=== PATIENT | male | born 1935 | race Caucasian/White ===

== ENCOUNTER 2021-01-04 08:55 | Outpatient (CLI) | payer MEDICARE, SELFPAY ==
--- NOTE | 2021-01-04 09:14 | ECG_ITS ---
[facility] Test Date: 2021-01-04 Pat Name: León Ruby Department: Room: Gender: Male Leisure Studies Professor: : 1935 Requested By: Hudson Kimbrough Order Number: [id number] Kendall MD: KAVIN VALDEZ Interpretive Statements NAME OF STUDY: LEXISCAN SESTAMIBI STRESS TEST INDICATION: Chest Pain; Shortness of Breath, NOTE: Please note that this is the electrocardiogram portion of the Lexiscan/Sestamibi stress test. The perfusion scan will be documented separately. DATA: Baseline heart rate was 59 beats per minute. Baseline blood pressure was 154/80 millimeters of mercury. Target heart rate was 134. Maximum heart rate achieved was 110. which was 82% of the predicted target heart rate. Maximum blood pressure was 154/80 millimeters of mercury. The reason for ending the test was completion of the protocol. The patient did not experience any symptoms. ELECTROCARDIOGRAM: BASELINE: Sinus rhythm. Normal axis. Otherwise, no ST-T changes suggestive of ischemia noted. No arrhythmia noted. EXERCISE: After Lexiscan injection, no ST-T changes suggestive of ischemic noted. No arrhythmia noted. CONCLUSION: Please note due to baseline abnormality of the EKG specificity and sensitivity of the EKG portion of LexiScan MIBI stress test will be low 1. EKG not suggestive of ischemia 2. Lexiscan injection unremarkable. 3. Perfusion scan will be documented separately. Electronically Signed On 01-04-2021 21:02:51 CDT by KAVIN VALDEZ [id number]
--- NOTE | 2021-01-04 09:15 | NMCV_ITS ---
NM jayna perf SPECT r/s* [id number] León Ruby Age: 85 Gender: M : 1935 Exam Date: 01/04/2021 10:21 Ordering Phys: Hudson Kimbrough MD ([email or web address]) Technologist: SANDRA Ramirez Exam Location: [facility] Indications: SHORTNESS OF BREATH STRESS TEST Please see separate stress test report in Ephiphany for full findings IMAGE PROTOCOL Rest/Stress 1 Lexiscan Day Radiopharmaceutical Dose (mCi) Administration Site Administered by Rest: Tc-99m 10.7 IV SANDRA Ramirez Sestamibi Stress:Tc-99m 32.6 IV SANDRA Muniz Sestamibi Rest: 04-Jan-2021 60 Discovery 630 Stress: 04-Jan-2021 30 Discovery 630 0.4mg Lexiscan. Images obtained in supine and prone position. SPECT RESULTS Technical Quality: Excellent Raw Data Analysis: Normal Image Corrections: No attenuation or motion correction applied Summed Stress Score: 2 Summed Rest Score: 0 Summed Difference Score: 2 PERFUSION FINDINGS Small area of slightly decreased tracer uptake in the basal ,mid and apical inferior wall region, with no significant reversibility FUNCTIONAL RESULTS (calculated via Gated SPECT) Stress Image LV EF (%): 75 Stress EDV (mL):80 TID: 0.93 Stress ESV (mL):20 FUNCTIONAL FINDINGS: Normal wall motion analysis revealing no gross wall motion normalities. IMPRESSIONS 1. Myocardial perfusion imaging revealing small area of slightly decreased persistent tracer uptake in the inferior wall region, suggestive of myocardial scarring versus attrition artifact. 2. Normal LV ejection fraction of 35%. 3. LV wall motion analysis revealing no gross wall motion normalities. 4. Normal LV volume. No significant coronary ischemia, based on the above findings Dr Hudson Kimbrough MD FACC (Electronically Signed) Final Date: 07 January 2021 19:01 S
[2021-01-04 09:34] VITALS: BMI 25.8
[2021-01-04] MEDS: regadenoson 0.4 Mg/5 ml Syringe IVP (10:52)
[2021-01-04 11:10] VITALS: BP 130/73; PULSE 69
== END 2021-01-04 08:56 | disposition home or self-care (01) ==
LOC: CDL 08:57
PROVIDERS: PCP Family Medicine; Visit Provider Internal Medicine Cardiovascular Disease
DX: R06.02 Shortness of breath (principal); R07.9 Chest pain, unspecified
CPT/HCPCS: 78452; 93017; A9500; J2785

== ENCOUNTER 2021-02-16 14:24 | Outpatient (CLI) | payer MEDICARE, SELFPAY ==
--- NOTE | 2021-02-16 14:15 | USCV_ITS ---
Tung León Age: 85 Gender: M : 1935 Exam Date: 02/16/2021 14:43 Ordering Phys: Hudson Kimbrough MD ([email or web address]) Technologist: Evelia Carty Exam Location: [facility] [place] Indication: abnormal CV function study BP: 135 / 80 HR: 60 Rhythm: Sinus Technical Quality: Adequate MEASUREMENTS (Male / Female) Normal Values 2D ECHO LV Diastolic Diameter PLAX 4.2 cm 4.2 - 5.9 / 3.9 - 5.3 cm LV Systolic Diameter PLAX 1.9 cm IVS Diastolic Thickness 1.3 cm 0.6 - 1.0 / 0.6 - 0.9 cm IVS Systolic Thickness 2.0 cm LVPW Diastolic Thickness 1.1 cm 0.6 - 1.0 / 0.6 - 0.9 cm LVPW Systolic Thickness 2.1 cm LVOT Diameter 2.0 cm LV Ejection Fraction 2D Teich 85.8 % LV Ejection Fraction MOD 2C 78.2 % LV Ejection Fraction 2C AL 79.4 % LA Diameter 3.4 cm LA Width 3.4 cm LA Height 5.4 cm RA Width 3.8 cm RA Height 5.0 cm Aorta at Sinotubular Diameter 3.0 cm DOPPLER AV Peak Velocity 158.7 cm/s LVOT Peak Velocity 128.0 cm/s AV Area Cont Eq vti 2.8 cm squared AV Area Cont Eq pk 2.6 cm squared MV Peak Velocity 130.0 cm/s MV Area PHT 3.0 cm squared Mitral E to A Ratio 1.3 MV E' Velocity 62.5 cm/s Mitral E to MV E' Ratio 14.8 Mitral E to LV E' Lateral Ratio 16.2 Mitral E to LV E' Septal Ratio 13.6 TR Peak Velocity 281.3 cm/s TR Peak Gradient 31.6 mmHg Right Atrial Pressure 3.0 mmHg Pulmonary Artery Systolic Pressu 34.6 mmHg PV Peak Velocity 74.0 cm/s RV Acceleration Time 0.1 s RV Ejection Time 0.3 s RV AcT/ET 0.4 FINDINGS Left Ventricle Normal left ventricular size and systolic function, EF 74 %. Mild left ventricular hypertrophy. No regional wall motion abnormalities. Right Ventricle The right ventricle is normal in size and function. Right Atrium The right atrium is normal in size. Left Atrium The left atrium is normal in size. Mitral Valve Thickened mitral valve. Trace mitral valve regurgitation. Mild mitral annular calcification. Aortic Valve Thickened aortic valve. Aortic valve sclerosis. Tricuspid Valve Mild tricuspid valve regurgitation. Estimated pulmonary artery peak systolic pressure of 35 mmHg Pulmonic Valve Trace pulmonary valve regurgitation. Pericardium Normal pericardium without effusion. Aorta Normal ascending aorta dimension. CONCLUSIONS Normal left ventricular size and systolic function, EF 74 %. Mild left ventricular hypertrophy. No regional wall motion abnormalities. Thickened mitral valve. Trace mitral valve regurgitation. Mild mitral annular calcification. Features of aortic valve sclerosis. Mild tricuspid valve regurgitation. Estimated pulmonary artery peak systolic pressure of 35 mmHg. There is no pericardial effusion. There are no intracardiac masses. No previous study is available for comparison. Dr Hudson Kimbrough MD FACC (Electronically Signed) Final Date: 16 February 2021 19:15 S
== END 2021-02-16 14:25 | disposition home or self-care (01) ==
LOC: US 14:27
PROVIDERS: PCP Family Medicine; Visit Provider Internal Medicine Cardiovascular Disease
DX: R94.30 Abnormal result of cardiovascular function study, unspecified (principal); I08.1 Rheumatic disorders of both mitral and tricuspid valves
CPT/HCPCS: 93306

== ENCOUNTER 2021-05-17 10:10 | Outpatient (RCR) | payer MEDICARE, SELFPAY | END 2021-06-01 23:59 | disposition home or self-care (01) | LOC: SPT 10:10 | PROVIDERS: PCP Family Medicine; Referring Provider Psychiatry & Neurology Neurology; Visit Provider Psychiatry & Neurology Neurology | DX: R26.9 Unspecified abnormalities of gait and mobility (principal) | CPT/HCPCS: 97110; 97112; 97116; 97161; 97530 ==

== ENCOUNTER 2021-06-02 06:00 | Outpatient (RCR) | payer MEDICARE, SELFPAY | END 2021-07-02 23:59 | disposition home or self-care (01) | LOC: SPT 06:00 | PROVIDERS: PCP Family Medicine; Referring Provider Psychiatry & Neurology Neurology; Visit Provider Psychiatry & Neurology Neurology | DX: R26.9 Unspecified abnormalities of gait and mobility (principal) | CPT/HCPCS: 97110; 97112; 97116 ==

== ENCOUNTER 2021-07-03 06:00 | Outpatient (RCR) | payer MEDICARE, SELFPAY | END 2021-07-30 23:59 | disposition home or self-care (01) | LOC: SPT 06:00 | PROVIDERS: PCP Family Medicine; Referring Provider Psychiatry & Neurology Neurology; Visit Provider Psychiatry & Neurology Neurology | DX: R26.9 Unspecified abnormalities of gait and mobility (principal) | CPT/HCPCS: 97110; 97164 ==

== ENCOUNTER → 2021-12-17 14:18 | Outpatient (BNVA) | payer MEDICARE, SELFPAY | PROVIDERS: PCP Family Medicine; Visit Provider Nurse Practitioner | DX: I10 Essential (primary) hypertension (principal); F03.90 Unspecified dementia, unspecified severity, without behavioral disturbance, psychotic disturbance, mood disturbance, and anxiety | CPT/HCPCS: 80053; 81000; 82607; 84443; 85025 ==

== ENCOUNTER → 2022-04-15 12:13 | Outpatient (BNVA) | payer MEDICARE, SELFPAY | PROVIDERS: PCP Nurse Practitioner; Referring Provider Family Medicine; Visit Provider Specialist | DX: R56.9 Unspecified convulsions (principal); G47.419 Narcolepsy without cataplexy; G30.9 Alzheimer's disease, unspecified; F02.80 Dementia in other diseases classified elsewhere, unspecified severity, without behavioral disturbance, psychotic disturbance, mood disturbance, and anxiety; G93.40 Encephalopathy, unspecified; R25.1 Tremor, unspecified; G47.52 REM sleep behavior disorder; R26.89 Other abnormalities of gait and mobility | CPT/HCPCS: 99205 ==

== ENCOUNTER 2022-04-18 17:47 | Emergency (ER) | payer MEDICARE, SELFPAY ==
--- NOTE | 2022-04-18 17:52 | W.ED.AMS ---
HPI - Altered Mental Status General: Chief Complaint: Altered Mental Status Stated Complaint: ams Time Seen by Provider: 04/18/22 17:52 Limitations: altered mental status History of Present Illness: Mr. Ruby is an 86-year-old gentleman with history of Alzheimer's dementia as well as medical conditions presenting to the emergency department due to altered mental status. Patient is alone in the room and supplemental history is extremely limited. Apparently has been more confused for approximately 2 days. Review of Systems General: Reports: ROS unobtainable due to mental status PFSH ED PFSH: Medical History Adrenal nodule Anemia Aortic stenosis BPH (benign prostatic hyperplasia) Bradycardia Carotid artery stenosis Carotid atherosclerosis CHF (congestive heart failure) CKD (chronic kidney disease) CVA (cerebral vascular accident) Dementia Dizziness Hearing loss of both ears History of nonmelanoma skin cancer HTN (hypertension) Hyperlipidemia Immunization declined Decline flu, pneumonia and COVID immunization. 02/20/22 Lives in assisted living facility SHIVA (obstructive sleep apnea) Osteoarthritis Restless leg Seizures Shortness of breath TIA (transient ischemic attack) Surgical History History of carotid endarterectomy History of right-sided carotid endarterectomy History of total left hip replacement Hx of bilateral inguinal hernia repair Hx of cataract extraction Hx of shoulder surgery Family History Mother Diabetes Sister Diabetes Brother Diabetes CAD (coronary artery disease) Son Hypertension Social History Smoking and tobacco status: former smoker Second hand smoke exposure: No Smoking risk assessment/counseling performed?: No Alcohol intake: never Desire information about alcohol rehabilitation?: No Counseling given: No Desire information about substance/drug rehabilitation?: No Counseling given: No Adopted: No Caregiver/support person: Yes Lives independently: No Household members: other Housing: Assisted Living Facility Marital status: Number of children: 3 Current occupational status: retired Pets and animals: No History of recent travel: No Current gender identity: Male Physical Exam Const: COMMON NORMALS: alert GENERAL APPEARANCE: cooperative and well developed HENMT: COMMON NORMALS: normocephalic and atraumatic HEAD & SCALP: normocephalic and atraumatic THROAT: posterior oropharynx normal Eye: COMMON NORMALS: conjunctivae normal CONJUNCTIVA: Yes conjunctivae normal SCLERA: sclerae normal Neck/C-Spine: COMMON NORMALS: supple GENERAL: Yes trachea midline Resp: COMMON NORMALS: clear to auscultation bilaterally EFFORT & INSPECTION: Yes able to speak in complete sentences AUSCULTATION: clear to auscultation bilaterally Cardio: COMMON NORMALS: regular rate and regular rhythm RATE: regular rate RHYTHM: regular rhythm GI: COMMON NORMALS: Soft to palpation PALPATION: Yes Soft to palpation and No Tenderness to palpation present (GI) Extremity: GENERAL: Yes normal exam except as noted and No edema Neuro: COMMON NORMALS: moves all extremities SENSORIUM/ORIENTATION: Yes alert and Yes Orientation impaired Psych: MEMORY/COGNITION: Yes memory grossly impaired and Yes cognition grossly impaired Course Vital Signs: Vital signs: Vital Signs Temperature 99 F 04/18/22 17:53 Pulse Rate 84 04/18/22 23:47 Respiratory Rate 19 H 04/18/22 21:15 Blood Pressure 152/66 04/18/22 23:47 Pulse Oximetry 93 04/18/22 23:47 Oxygen Delivery Me thod 04/18/22 23:00 Oxygen Flow Rate 2 04/18/22 21:15 MDM - Altered Mental Status Medical Decision Making 86-year-old gentleman presenting with possible alteration in consciousness from senior care with limited history. Limited history provided by patient however neurologic exam is nonfocal. EKG shows sinus rhythm with nonspecific ST segment abnormalities, no STEMI. Labs with mild leukocytosis, macrocytic anemia. No significant metabolic derangement to explain symptoms. Delta troponin at 2 hours is negative. No evidence of UTI. Chest x-ray with mild pulmonary vascular congestion. CT head with chronic findings, no acute traumatic injury to cervical spine. The exact cause of patient's symptoms is unclear, leukocytosis may be secondary to viral syndrome. Given patient's baseline mental status I do not feel that patient requires further inpatient evaluation. The results of ED evaluation were discussed with the patient including prescriptions and/or symptomatic cares (if applicable) including appropriate and responsible use, followup plan, and return precautions. The patient verbalized understanding and felt safe for discharge. Medical Records I reviewed the patient's medical records. Lab Data I reviewed the patient's lab results. 04/18/22 18:15 04/18/22 18:15 Radiology Impressions Chest X-Ray 04/18/22 17:56 IMPRESSION: 1. Cardiomegaly and mild pulmonary vascular congestion. 2. Left lower lobe atelectasis versus minimal infiltrate. Head CT 04/18/22 17:56 IMPRESSION: 1. Negative for intracranial hemorrhage or mass effect. 2. Large amount of diffuse white matter disease likely reflecting chronic microvascular ischemic changes. 3. Left external capsule chronic lacunar infarct. Cervical Spine CT 04/18/22 17:59 IMPRESSION: 1. Negative for fracture or dislocation. 2. Mastoid air cell partial opacification may reflect an infectious or inflammatory process. 3. Carotid artery atherosclerotic calcifications. Laboratory Results WBC 12.0 10^3/uL (4.0-10.0) H 04/18/22 18:15 RBC 3.62 10^6/uL (4.1-5.3) L 04/18/22 18:15 Hgb 11.0 g/dL (11.7-16.6) L 04/18/22 18:15 Hct 35.1 % (42.0-52.0) L 04/18/22 18:15 MCV 97.0 fl (80-94) H 04/18/22 18:15 MCH 30.4 pg (28.0-34.0) 04/18/22 18:15 MCHC 31.3 g/dL (30.0-36.0) 04/18/22 18:15 RDW 13.2 % (12.1-15.1) 04/18/22 18:15 Plt Count 190 10^3/cmm (130-400) 04/18/22 18:15 MPV 10.4 fL (7.4-10.4) 04/18/22 18:15 Neut % (Auto) 81.0 % 04/18/22 18:15 Lymph % (Auto) 8.0 % 04/18/22 18:15 Walton % (Auto) 9.7 % 04/18/22 18:15 Eos % (Auto) 0.7 % 04/18/22 18:15 Baso % (Auto) 0.3 % 04/18/22 18:15 Neut # (Auto) 9.75 10^3/uL (1.8-7.7) H 04/18/22 18:15 Lymph # (Auto) 1.0 10^3/uL (0.8-4.8) 04/18/22 18:15 Walton # (Auto) 1.2 10^3/uL (0.2-0.9) H 04/18/22 18:15 Eos # (Auto) 0.1 10^3/uL (0.0-0.8) 04/18/22 18:15 Baso # (Auto) 0.0 10^3/uL (0.0-0.1) 04/18/22 18:15 Nucleated RBC % (auto) 0 % 04/18/22 18:15 Nucleated RBCs # 0.0 /100WBC 04/18/22 18:15 Sodium 141 mmol/L (136-145) 04/18/22 18:15 Potassium 3.8 mmol/L (3.5-5.1) 04/18/22 18:15 Chloride 99 mmol/L (98-107) 04/18/22 18:15 Carbon Dioxide 31 mmol/L (22-29) H 04/18/22 18:15 Anion Gap 14.8 (5-19) 04/18/22 18:15 BUN 24 mg/dL (8-23) H 04/18/22 18:15 Creatinine 1.2 mg/dL (0.7-1.2) 04/18/22 18:15 GFR Calculation Not Reportable 04/18/22 18:15 Glucose 117 mg/dL (65-115) H 04/18/22 18:15 POC Glucose 120 mg/dL (70-110) H 04/18/22 18:52 Calculated Osmolality 297 mOsm/kg (285-295) H 04/18/22 18:15 Calcium 9.0 mg/dL (8.5-10.5) 04/18/22 18:15 Total Bilirubin 0.7 mg/dL (0.15-1.2) 04/18/22 18:15 AST 17 U/L (0-40) 04/18/22 18:15 ALT 10 U/L (0-41) 04/18/22 18:15 Alkaline Phosphatase 76 U/L (40-130) 04/18/22 18:15 Troponin T Baseline 45 ng/L (0-15) H 04/18/22 18:15 Troponin T 120 Minute 44.24 ng/L (0-15) H 04/18/22 20:25 Delta Troponin T -0.76 ABS# (0-10) L 04/18/22 20:25 Total Protein 6.7 g/dL (6.6-8.7) 04/18/22 18:15 Albumin 3.7 g/dL (3.5-5.2) 04/18/22 18:15 Globulin 3.0 g/dL (1.3-4.6) 04/18/22 18:15 Procalcitonin 0.03 ng/mL (0-0.5) 04/18/22 18:15 TSH 0.90 uIU/mL (0.27-4.20) 04/18/22 18:15 Urine Color Yellow (Yellow) 04/18/22 21:04 Urine Appearance Clear (CLEAR) 04/18/22 21:04 Urine pH 5 (5-7) 04/18/22 21:04 Ur Specific [place] 1.020 (1.005-1.030) 04/18/22 21:04 Urine Protein Trace (Negative) 04/18/22 21:04 Urine Glucose (UA) Norm (Normal) 04/18/22 21:04 Urine Ketones 1+ (Negative) H 04/18/22 21:04 Urine Blood 2+ (Negative) H 04/18/22 21:04 Urine Nitrate Negative (Negative) 04/18/22 21:04 Urine Bilirubin Neg (Negative) 04/18/22 21:04 Urine Urobilinogen Norm mg/dL (Negative) 04/18/22 21:04 Ur Leukocyte Esterase Negative (Negative) 04/18/22 21:04 Urine RBC 0-4 /hpf (0-2) H 04/18/22 21:04 Urine WBC None /hpf (0-5) 04/18/22 21:04 Ur Squamous Epith Cells 0-4 /hpf (0-5) H 04/18/22 21:04 Amorphous Sediment 2+ /hpf 04/18/22 21:04 Urine Bacteria None /hpf (NONE) 04/18/22 21:04 Coarse Granular Casts 0-4 /lpf H 04/18/22 21:04 Salicylates < 0.3 mg/dL (3-10) L 04/18/22 18:15 Acetaminophen < 5.0 ug/mL (10-30) L 04/18/22 18:15 Ethyl Alcohol < 10 mg/dL (0-10) 04/18/22 18:15 Coronavirus 229E (PCR) Not detected (NOT DETECT) 04/18/22 18:46 SARS-CoV-2 (PCR) Not detected (NOT DETECT) 04/18/22 18:46 Discharge Plan Discharge Patient Disposition: [facility] Clinical Impression: Altered mental status, Viral syndrome Condition: Stable Discharge Orders: Discharge ED (Routine); Ordered 04/18/22 Ordered By: Naresh Lay Referrals: Katalina Melo FNP-C [Primary Care Provider] - Discharge Diet: Usual diet Discharge Activity: Increase activity as tolerated Patient Instructions: Viral Syndrome (ED), Altered Mental Status (ED) Activity Restrictions/Additional Instructions: Thank you for visiting the emergency department. You were seen and evaluated for altered mental status associated with fever. The exact cause of the symptoms is unclear though may be related to viral syndrome. I do not see any other obvious source of infection. You may treat symptoms with acetaminophen and ibuprofen as long as you have not been told to avoid these medications in the past. Please be reassessed with primary care within the next 3 to 5 days. Return to the emergency department for uncontrolled symptoms or anything else that you are concerned about a feel needs emergency department evaluation. Coding Level of Care Code ED Environmental Aid for [place]
[2022-04-18 17:53] VITALS: BP 176/86; PULSE 101; RESP 20; TEMP 37.2; O2SAT 97
--- NOTE | 2022-04-18 17:56 | XRR_ITS ---
PROCEDURE INFORMATION: Exam: XR Chest Exam date and time: 04/18/2022 7:01 PM Age: 86 years old Clinical indication: Other: AMS TECHNIQUE: Imaging protocol: Radiologic exam of the chest. Views: 1 view. COMPARISON: CR XR shoulder RT min 2V* [id number] 05/29/2018 10:26 AM FINDINGS: Lungs: Left lower lobe atelectasis versus minimal infiltrate. Pleural spaces: Unremarkable. No pleural effusion. No pneumothorax. Heart/Mediastinum: Cardiomegaly and mild pulmonary vascular congestion. Bones/joints: Unremarkable. XR/XR chest 1V portable [id number] IMPRESSION: 1. Cardiomegaly and mild pulmonary vascular congestion. 2. Left lower lobe atelectasis versus minimal infiltrate.
--- NOTE | 2022-04-18 17:56 | CTR_ITS ---
PROCEDURE INFORMATION: Exam: CT Head Without Contrast Exam date and time: 04/18/2022 6:57 PM Age: 86 years old Clinical indication: Altered mental status/memory loss; Additional info: AMS TECHNIQUE: Imaging protocol: Computed tomography of the head without contrast. Radiation optimization: All CT scans at this facility use at least one of these dose optimization techniques: automated exposure control; mA and/or kV adjustment per patient size (includes targeted exams where dose is matched to clinical indication); or iterative reconstruction. COMPARISON: No relevant prior studies available. RADIATION DOSE METRICS: Total DLP (mGy-cm): 1403.68 FINDINGS: Brain: Large amount of diffuse white matter disease likely reflecting chronic microvascular ischemic changes. Left external capsule chronic lacunar infarct. Cerebral ventricles: No ventriculomegaly. Paranasal sinuses: Visualized sinuses are unremarkable. No fluid levels. Mastoid air cells: Visualized mastoid air cells are well aerated. Bones/joints: Unremarkable. No acute fracture. Soft tissues: Unremarkable. CT/CT head wo con* [id number] IMPRESSION: 1. Negative for intracranial hemorrhage or mass effect. 2. Large amount of diffuse white matter disease likely reflecting chronic microvascular ischemic changes. 3. Left external capsule chronic lacunar infarct.
--- NOTE | 2022-04-18 17:57 | ECG_ITS ---
[facility] Test Date: 2022-04-18 Pat Name: León Ruby Department: Room: Gender: Male Air Sampling And Monitoring: : 1935 Requested By: Naresh Lay Order Number: [id number] Kendall MD: Grupo Henriquez M.D. Measurements Intervals [place] Rate: 99 P: 0 [place]: 0 QRS: 53 QRSD: 81 T: 40 QT: 300 QTc: 385 Interpretive Statements ATRIAL FIBRILLATION WITH ABERRANT CONDUCTION OR VENTRICULAR PREMATURE COMPLEXES NONSPECIFIC T-WAVE ABNORMALITY No previous ECG available for comparison Electronically Signed On 04-19-2022 6:24:13 SIGNALS ANALYST by Grupo Henriquez M.D. [id number]
--- NOTE | 2022-04-18 17:59 | CTR_ITS ---
PROCEDURE INFORMATION: Exam: CT Cervical Spine Without Contrast Exam date and time: 04/18/2022 7:00 PM Age: 86 years old Clinical indication: Other: Patient found down--; Additional info: AMS TECHNIQUE: Imaging protocol: Computed tomography of the cervical spine without contrast. Radiation optimization: All CT scans at this facility use at least one of these dose optimization techniques: automated exposure control; mA and/or kV adjustment per patient size (includes targeted exams where dose is matched to clinical indication); or iterative reconstruction. COMPARISON: CT head wo con* [id number] 04/18/2022 6:57 PM RADIATION DOSE METRICS: Total DLP (mGy-cm): 184.68 FINDINGS: Bones/joints: No acute fracture. Normal alignment. C2-C3: No significant disc protrusion. No severe spinal canal stenosis. No significant neural foraminal narrowing. C3-C4: No significant disc protrusion. No severe spinal canal stenosis. No significant neural foraminal narrowing. C4-C5: No significant disc protrusion. No severe spinal canal stenosis. No significant neural foraminal narrowing. C5-C6: No significant disc protrusion. No severe spinal canal stenosis. No significant neural foraminal narrowing. C6-C7: No significant disc protrusion. No severe spinal canal stenosis. No significant neural foraminal narrowing. C7-T1: No significant disc protrusion. No severe spinal canal stenosis. No significant neural foraminal narrowing. Mastoid air cells: Mastoid air cell partial opacification may reflect an infectious or inflammatory process. Lungs: Lung apices are normal. Vasculature: Carotid artery atherosclerotic calcifications. Soft tissues: Unremarkable. CT/CT cervical spin wo con* [id number] IMPRESSION: 1. Negative for fracture or dislocation. 2. Mastoid air cell partial opacification may reflect an infectious or inflammatory process. 3. Carotid artery atherosclerotic calcifications.
[2022-04-18] MEDS: haloperidol inj 5 mg/mL INJ 1 mL 2 MG IVP (18:29)
[2022-04-18 18:32] VITALS: BP 160/77; PULSE 90; RESP 16; O2SAT 96
[2022-04-18 18:59] LABS: Basophils % 0.3 %; Eosinophils # 0.1 10^3/uL (0.0-0.8); Eosinophils % 0.7 %; Hematocrit 35.1 % (42.0-52.0); Mean Corpuscular HGB Conc 31.3 g/dL (30.0-36.0); Mean Corpuscular Hemoglobin 30.4 pg (28.0-34.0); Mean Platelet Volume 10.4 fL (7.4-10.4); Monocytes # 1.2 10^3/uL (0.2-0.9); Monocytes % 9.7 %; Neutrophils # 9.75 10^3/uL (1.8-7.7); Nucleated Red Blood Cells % 0 %; Platelet Count 190 10^3/cmm (130-400); Red Blood Count 3.62 10^6/uL (4.1-5.3); Red Cell Distribution Width 13.2 % (12.1-15.1)
[2022-04-18 18:59] LABS: Glucose Point of Care 120 mg/dL (70-110)
[2022-04-18 19:33] LABS: Troponin(5th) Baseline 45 ng/L (0-15)
[2022-04-18 19:39] LABS: Procalcitonin 0.03 ng/mL (0-0.5)
[2022-04-18 19:51] LABS: Alanine Aminotransferase 10 U/L (0-41); Albumin Level 3.7 g/dL (3.5-5.2); Alkaline Phosphatase 76 U/L (40-130); Anion Gap 14.8 (5-19); Aspartate Amino Transferase 17 U/L (0-40); Blood Urea Nitrogen 24 mg/dL (8-23); Carbon Dioxide 31 mmol/L (22-29); Chloride 99 mmol/L (98-107); Glucose 117 mg/dL (65-115); Osmolality Calculated 297 mOsm/kg (285-295); Potassium 3.8 mmol/L (3.5-5.1); Sodium 141 mmol/L (136-145); Total Bilirubin 0.7 mg/dL (0.15-1.2); Total Protein 6.7 g/dL (6.6-8.7)
[2022-04-18 19:52] LABS: Salicylate < 0.3 mg/dL (3-10)
[2022-04-18 19:53] LABS: Acetaminophen < 5.0 ug/mL (10-30); Alcohol Level < 10 mg/dL (0-10)
--- NOTE | 2022-04-18 20:37 | ECG_ITS ---
[facility] Test Date: 2022-04-18 Pat Name: León Ruby Department: Room: Gender: Male Assembler Tester: : 1935 Requested By: Naresh Lay Order Number: [id number] Kendall MD: Grupo Henriquez M.D. Measurements Intervals [place] Rate: 87 P: 58 [place]: 152 QRS: 46 QRSD: 73 T: 10 QT: 354 QTc: 427 Interpretive Statements SINUS RHYTHM Compared to ECG 04/18/2022 18:10:38 Atrial fibrillation no longer present Ventricular premature complex(es) no longer present Aberrant conduction of supraventricular beat(s) no longer present T-wave abnormality no longer present Electronically Signed On 04-19-2022 6:31:18 PROGRAM TECHNICIAN by Grupo Henriquez M.D. [id number]
[2022-04-18 20:48] LABS: Adenovirus Not Detected (NOT DETECT); Chlamydia Pneumoniae Not Detected (NOT DETECT); Coronavirus 229E,HKU1,NL63,OC4 Not Detected (NOT DETECT); Human Metapneumovirus Not Detected (NOT DETECT); Human Rhinovirus/Enterovirus Not Detected (NOT DETECT); Influenza A Not Detected (NOT DETECT); Influenza A H1 Not Detected (NOT DETECT); Influenza A H1-2009 Not Detected (NOT DETECT); Influenza A H3 Not Detected (NOT DETECT); Influenza B Not Detected (NOT DETECT); Mycoplasma Pneumoniae Not Detected (NOT DETECT); Parainfluenza Virus Type 1 Not Detected (NOT DETECT); Parainfluenza Virus Type 2 Not Detected (NOT DETECT); Parainfluenza Virus Type 3 Not Detected (NOT DETECT); Parainfluenza Virus Type 4 Not Detected (NOT DETECT); Respiratory Syncytial Virus A Not Detected (NOT DETECT); Respiratory Syncytial Virus B Not Detected (NOT DETECT); SARS-COV-2 Not Detected (NOT DETECT)
[2022-04-18 21:02] LABS: Troponin 5 2HR 44.24 ng/L (0-15)
[2022-04-18 21:07] LABS: Troponin 5 2HR Delta -0.76 ABS# (0-10)
[2022-04-18 21:15] VITALS: BP 150/69; PULSE 85; RESP 19; O2SAT 96
[2022-04-18 21:51] LABS: Add Urine Microscopic? YES; Bilirubin Urine Neg (Negative); Blood Urine 2+ (Negative); Glucose Urine UA Norm (Normal); Ketones Urine 1+ (Negative); Leukocyte Esterase Urine Negative (Negative); Nitrate Urine Negative (Negative); Protein Urine Trace (Negative); Urine Appearance Clear (CLEAR); Urine Color Yellow (Yellow); Urobilinogen Urine Norm (Negative); pH Urine 5 (5-7)
[2022-04-18 21:52] LABS: Amorphous Sediment Urine 2+ /hpf; Coarse Granular Casts Urine 0-4 /lpf; RBC Urine 0-4 /hpf (0-2); Squamous Epithelial Cell Urine 0-4 /hpf (0-5)
[2022-04-18 21:53] LABS: Add Urine Culture? No
[2022-04-18 23:00] VITALS: BP 152/66; PULSE 84; O2SAT 93
--- NOTE | 2022-04-18 23:07 | PC.NURSE ---
Transfer of care Called [facility] to give report prior to transfer back to facility. Nurse not available on nights per staff. Spoke with Aretha PERRY- gave report. D/c instructions will go back with patient.
[2022-04-18 23:47] VITALS: BP 152/66; PULSE 84; O2SAT 93
--- NOTE | 2022-04-19 10:01 | PC.NURSE ---
Critical preliminary blood culture result reported to Gamal Melo's office as instructed by Dr. Garcia. This RN spoke with Hanna VALERIO who informed they will handle abx coverage.
== END 2022-04-18 23:40 ==
PROVIDERS: Emergency Provider Emergency Medicine; PCP Nurse Practitioner
DX: R41.82 Altered mental status, unspecified (principal); B34.9 Viral infection, unspecified; I10 Essential (primary) hypertension; E78.5 Hyperlipidemia, unspecified; I13.0 Hypertensive heart and chronic kidney disease with heart failure and stage 1 through stage 4 chronic kidney disease, or unspecified chronic kidney disease; I50.9 Heart failure, unspecified; N18.9 Chronic kidney disease, unspecified; Z86.73 Personal history of transient ischemic attack (TIA), and cerebral infarction without residual deficits
CPT/HCPCS: 36415; 36416; 51701; 70450; 71045; 72125; 80053; 80307; 81001; 82962; 84145; 84443; 84484; 85025; 87040; 87205; 87635; 93005; 96374; 99285; J1630

== ENCOUNTER → 2022-05-02 13:08 | Outpatient (BNVA) | payer MEDICARE, SELFPAY | PROVIDERS: PCP Nurse Practitioner; Referring Provider Specialist; Visit Provider Specialist | DX: G93.40 Encephalopathy, unspecified (principal); G30.9 Alzheimer's disease, unspecified; F02.80 Dementia in other diseases classified elsewhere, unspecified severity, without behavioral disturbance, psychotic disturbance, mood disturbance, and anxiety; G47.419 Narcolepsy without cataplexy | CPT/HCPCS: 95812; 95816 ==